=== PATIENT | male | born 1980 | race Caucasian/White ===

== ENCOUNTER 2016-11-04 08:03 | Emergency (ER) | payer SELFPAY ==
[~2016-11-04] VITALS: Ht 177.8 cm; Wt 77.1 kg
[2016-11-04 08:06] VITALS: BP 130/74
[2016-11-04] MEDS ORDERED: ENBREL50 MG/1 M1 SUBQ ×2 (08:13→08:38)
--- NOTE | 2016-11-04 08:35 | Emergency Room Report ---
History of Present Illness General Chief Complaint: Pain Source: Patient Present Illness HPI 36-year-old male with known ankylosing spondylitis presents with 3 weeks of neck and back pain. Patient states that he just moved to area and has not received a refill for he's a etanercept which he has been taking for years. Patient states that he has run out of medication for 3 weeks. Patient states that he has seen doctors in the past who prescribed Motrin and muscle relaxants but that has not helped. Patient states pain to neck and back worse with movement. Patient states that pain feels like his previous pain related to ankylosing spondylitis. Patient denies any weakness or numbness of the upper lower extremities. Patient denies any urinary retention or incontinence or any saddle anesthesia. Patient denies any fever or chills. Allergies: Coded Allergies: No Known Allergies (Unverified , 11/04/16) Patient History PMH Narrative ankylosing spondylitis Review of Systems Musculoskeletal: Reports: back pain, joint pain, muscle pain Physical Exam Vital Signs Date Time Temp Pulse Resp B/P Pulse Ox O2 Delivery O2 Flow Rate FiO2 11/04/16 08:06 98.3 94 16 130/74 97 Room Air General Appearance: normal inspection, well appearing, no apparent distress, alert, GCS 15, non-toxic Head: normocephalic, atraumatic Eyes: bilateral eye EOMI, bilateral eye PERRL, bilateral eye normal inspection ENT: normal ENT inspection, normal pharynx, normal voice, moist mucus membranes Neck: normal inspection, full range of motion, supple, no bony tend Respiratory: normal inspection, lungs clear, normal breath sounds, no respiratory distress, no retraction, no wheezing, speaking full sentences, chest symmetrical Cardiovascular #1: normal inspection, regular rate, rhythm, no edema, normal capillary refill Gastrointestinal: normal inspection, non tender, soft, non-distended, no guarding Genitourinary: no CVA tenderness Musculoskeletal: normal inspection, normal range of motion, other - Paraspinal left-sided cervical tenderness no midline tenderness. Paraspinal bilateral lumbar tenderness no midline tenderness. No gross bony deformities. Neurologic: normal inspection, alert, oriented x3, responsive, motor strength/ tone normal, sensory intact, normal gait, speech normal, other - Good tone. Motor strength 5 out of 5 all extremities. Sensation to light touch intact. Medical Decision Making Diagnostic Impression: Primary Impression: Chronic pain Additional Impression: Ankylosing spondylitis of multiple sites in spine ER Course 36-year-old male with known ankylosing spondylitis presenting with 3 weeks of neck and back pain. here for med refill DDX: Chronic back pain related to ankylosing spondylitis. No concern for cord compression or spinal epidural abscess given normal clinical findings and physical exam. no neuro sx. No trauma. ER course: Patient offered Motrin Robaxin but says that it doesn't work. Patient remains nontoxic appearing and ambulatory in the ER. Disposition. The patient is to be discharged home with rx for etanercept. 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 Patient is given a refill for etanercept for which he has been taking for 3 years. Strict return precautions given to patient such as severe worsening back pain fever chills motor weakness inability to walk. Patient verbalizes understanding and agrees with plan. Last Vital Signs Date Time Temp Pulse Resp B/P Pulse Ox O2 Delivery O2 Flow Rate FiO2 11/04/16 08:06 94 16 130/74 97 Room Air 11/04/16 08:06 98.3 Disposition: HOME, SELF-CARE Condition: Stable Scripts Etanercept (ENBREL) 50 Mg/1 Ml Pen.injctr 50 MG SUBQ ONCE A WEEK, #4 EA Prov: He Morrow M.D. 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 He Morrow M.D. Nov 04, 2016 08:35
[2016-11-04 08:46] VITALS: BP 126/73
== END 2016-11-04 08:46 | disposition home or self-care (01) ==
LOC: EMR 08:28
DX: G89.29 Other chronic pain (principal); M45.0 Ankylosing spondylitis of multiple sites in spine; M54.2 Cervicalgia
CPT/HCPCS: 99283